=== PATIENT | female | born 1990 | race Caucasian/White ===

== ENCOUNTER 2017-04-15 19:44 | Emergency (ER) | payer MEDICAID ==
[2017-04-15] MEDS ORDERED: ONDANSETRON 4 MG/2 ML VIAL IVP ONE (20:15)
[2017-04-15] MEDS ORDERED: NS 1,000 ML IV ONE (20:15)
[2017-04-15] MEDS ORDERED: KETOROLAC 30 MG/1 ML SDV IVP ONE (20:15)
[2017-04-15 20:20] LABS: COLOR YELLOW; LEUKOCYTE ESTERASE,URINE 3+ (NEGATIVE); NITRITE,URINE NEGATIVE (NEGATIVE)
[2017-04-15 20:32] LABS: WBC,URINE >182 /hpf (0-3)
[2017-04-15 20:33] LABS: BACTERIA 3+ /hpf (NONE SEEN)
[2017-04-15 20:39] LABS: % IMMATURE GRANULYOCYTES 0.3 % (0.0-1.1); ABSOLUTE IMMATURE GRANULOCYTES 0.04 10^3/uL (0.00-0.10); ADD DIFF? NO; ADD MORPH? NO; ADD SCAN? NO; ATYPICAL LYMPHOCYTE FLAG 0 (0-99); FRAGMENT RBC FLAG 0 (0-99); HEMATOCRIT 43.7 % (38.0-47.0); HEMOGLOBIN 15.3 g/dL (12.6-16.3); LEFT SHIFT FLG 0 (0-99); LIPEMIA HEMOLYSIS FLAG 90 (0-99); MEAN CELL HEMOGLOBIN 29.2 pg (27.9-34.1); MEAN CELL VOLUME 83.4 fL (81.5-99.8); MEAN PLATELET VOLUME 12.3 fL (8.7-11.7); PLATELET CLUMPS FLAG 10 (0-99); PLATELET COUNT 224 10^3/uL (150-400); RED BLOOD CELL COUNT 5.24 10^6/uL (4.18-5.33); RED CELL DISTRIBUTION WIDTH 12.6 % (11.5-15.2)
[2017-04-15 20:52] LABS: ANION GAP 17 mEq/L (8-16); CALCIUM 9.2 mg/dL (8.5-10.4); CARBON DIOXIDE 21 mEq/l (22-31); CHLORIDE 102 mEq/L (97-110); CREATININE 0.5 mg/dL (0.6-1.0); GLOMERULAR FILTRATION RATE > 60; GLUCOSE 123 mg/dL (70-100); POTASSIUM 3.9 mEq/L (3.5-5.2); SODIUM 140 mEq/L (134-144)
[2017-04-15] MEDS ORDERED: CIPROFLOXACIN 500 MG TAB PO ONE (21:17)
[2017-04-15 21:22] LABS: ALBUMIN 4.2 g/dL (3.5-5.0); BILIRUBIN,TOTAL 0.8 mg/dL (0.1-1.4); BILIRUBIN-CONJUGATED 0.4 mg/dL (0.0-0.5); BILIRUBIN-UNCONJUGATED 0.4 mg/dL (0.0-1.1); TOTAL PROTEIN 8.1 g/dL (6.3-8.2)
--- NOTE | 2017-04-15 21:26 | EDPHY ---
H & P Stated Complaint: Dysuria, lethargy, TONEY, back pain, thinks has UTI Time Seen by Provider: 04/15/17 20:09 HPI/ROS: this patient reports onset of dysuria 1 week ago and over the past 2 days she has developed associated left flank pain, headache, nausea and vomiting. Last emesis is 1 hour prior to arrival. She has associated anorexia at the day due to the ongoing nausea. She notes no clear exacerbating factors for her symptoms. Her recent history includes [facility] discharge found have a yeast infection per patient. No urinalysis was done at that time. ROS: Constitutional: No high fevers or chills. She does report low-grade subjective fevers. HEENT: She reports generalized headache of moderate intensity today. This is similar to previous headaches. Pulmonary: No cough shortness of breath. Cardiovascular: No lightheadedness. No heart palpitations. GI: No hematemesis. No diarrhea. She reports normal bowel movements. : Mild vaginal discharge consistent with her yeast infection per patient. Dysuria as noted per HPI. Integumentary: No skin rash. 10 point ROS is otherwise negative. Source: Patient Exam Limitations: No limitations - Personal History LMP (Females 10-55): Irregular Current Tetanus/Diphtheria Vaccine: Unsure Current Tetanus Diphtheria and Acellular Pertussis (TDAP): Unsure - Medical/Surgical History Hx Asthma: No Hx Chronic Respiratory Disease: No Hx Diabetes: No Hx Cardiac Disease: No Hx Renal Disease: No Hx Cirrhosis: No Hx Alcoholism: No Hx HIV/AIDS: No Hx Splenectomy or Spleen Trauma: No Other PMH: C SECTION x2,tonsillectomy, cervical CA with surg, depression, anxiety, sleep issues, tonisllectomy, CHF with Renal failure post #2, Heroine addict HX - Clean for 8 years - Family History Significant Family History: No pertinent family hx - Social History Smoking Status: Never smoked Alcohol Use: Occasionally Drug Use: None (Former heroin use now clean per patient) - Physical Exam Exam: General Appearance: Alert, no distress. Eyes: Pupils equal and round no pallor or injection. ENT, Mouth: Mucous membranes moist. Respiratory: There are no retractions, lungs are clear to auscultation. Cardiovascular: Regular rate and rhythm.No murmur gallop rub is appreciated. Gastrointestinal: She has suprapubic tenderness -moderate. No guarding or rebound. No upper belly tenderness. No organomegaly is appreciated. Back: She has left CVA tenderness -[id number] Neurological: GCS 15. No focal sensory or motor deficits Skin: Warm and dry, no rashes. Musculoskeletal: Neck is supple nontender. Extremities are symmetrical, full range of motion. Psychiatric: mood and affect are normal DIFFERENTIAL DIAGNOSIS: After history and physical exam differential diagnosis was considered for pyelonephritis, ectopic , viral gastroenteritis, dehydration Constitutional: Initial Vital Signs Temperature (C) 36.8 C 04/15/17 19:55 Heart Rate 104 H 04/15/17 19:55 Respiratory Rate 16 04/15/17 19:55 Blood Pressure 111/83 H 04/15/17 19:55 O2 Sat (%) 95 04/15/17 19:55 O2 Delivery Mode Room Air Allergies/Adverse Reactions: cefdinir Allergy (Severe, Verified 04/15/17 19:58) Anaphylaxis Penicillins Allergy (Severe, Verified 04/15/17 19:58) Anaphylaxis Sulfa (Sulfonamide Antibiotics) Allergy (Severe, Verified 04/15/17 19:58) Anaphylaxis vancomycin Allergy (Severe, Verified 04/15/17 19:58) Anaphylaxis Home Medications: Medication Instructions Recorded Hydrocodone/APAP 5/325 [[place] 1 - 2 tab PO Q4PRN PRN #15 tab 08/28/16 5/325 (*)] IRON 08/28/16 Iud 08/28/16 Celexa 04/15/17 Ciprofloxacin [Cipro] 500 mg PO BID #14 tab 04/15/17 Fluconazole [Diflucan] 200 mg PO ONCE #2 tablet 04/15/17 Kratom For Drug Addiction. 04/15/17 LORazepam 04/15/17 Ondansetron Odt [Zofran Odt] 4 - 8 mg PO Q4PRN PRN #4 tab 04/15/17 Trazodone HCl 04/15/17 Medical Decision Making ED Course/Re-evaluation: IV normal saline bolus Zofran with resolution of nausea Toradol with improvement and flank pain and headache. Review of her labs reveals leukocytosis, electrolytes unremarkable. She bilirubin in her urine so LFTs were checked which were normal with no evidence of hepatitis. test is negative. I counseled regarding her pyelonephritis with plan for oral Cipro given her antibiotic allergies to cephalosporins the causes anaphylaxis, penicillins Vanco and sulfa. She understands the potential risk of tendon inflammation rupture with Cipro and accepts this risk. I also explained the rare possibility of cardiac dysrhythmia with combination Celexa, Cipro, Zofran Diflucan. Given our limitations with her many antibiotic allergies think this is still the best choice. Patient understands this risk and accepts it. At 10:08 p.m. patient has normal vital signs, feels improved after treatment and would like to proceed home. Discussion: Pyelonephritis without evidence of severe sepsis or other complicating factors. While she initially had 2 findings for SIRS/sepsis with elevated white count and tachycardia, her tachycardia resolved with treatment. Thereafter she no longer met septic criteria. - Data Points Laboratory Results: Laboratory Results 04/15/17 20:33 04/15/17 20:33 04/15/17 04/15/17 04/15/17 20:33 20:33 20:33 WBC RBC Hgb Hct MCV MCH MCHC RDW Plt Count MPV Neut % (Auto) Lymph % (Auto) [place] % (Auto) Eos % (Auto) Baso % (Auto) Nucleat RBC Rel Count Absolute Neuts (auto) Absolute Lymphs (auto) Absolute Monos (auto) Absolute Eos (auto) Absolute Basos (auto) Absolute Nucleated RBC Immature Gran % Immature Gran # Sodium 140 mEq/L mEq/L (134-144) Potassium 3.9 mEq/L mEq/L (3.5-5.2) Chloride 102 mEq/L mEq/L (97-110) Carbon Dioxide 21 mEq/l L mEq/l (22-31) Anion Gap 17 mEq/L H mEq/L (8-16) BUN 8 mg/dL mg/dL (7-23) Creatinine 0.5 mg/dL L mg/dL (0.6-1.0) Estimated GFR > 60 Glucose 123 mg/dL H mg/dL (70-100) Calcium 9.2 mg/dL mg/dL (8.5-10.4) Total Bilirubin 0.8 mg/dL mg/dL (0.1-1.4) Conjugated Bilirubin 0.4 mg/dL mg/dL (0.0-0.5) Unconjugated Bilirubin 0.4 mg/dL mg/dL (0.0-1.1) AST 28 IU/L IU/L (14-46) ALT 32 IU/L IU/L (9-52) Alkaline Phosphatase 81 IU/L IU/L (38-126) Total Protein 8.1 g/dL g/dL (6.3-8.2) Albumin 4.2 g/dL g/dL (3.5-5.0) Beta HCG, Qual NEGATIVE Urine Color Urine Appearance Urine pH Ur Specific [place] Urine Protein Urine Ketones Urine Blood Urine Nitrate Urine Bilirubin Urine Urobilinogen Ur Leukocyte Esterase Urine RBC Urine WBC Ur Epithelial Cells Urine Bacteria Urine Glucose 04/15/17 04/15/17 20:33 19:54 WBC 12.60 10^3/uL H 10^3/uL (3.80-9.50) RBC 5.24 10^6/uL 10^6/uL (4.18-5.33) Hgb 15.3 g/dL g/dL (12.6-16.3) Hct 43.7 % % (38.0-47.0) MCV 83.4 fL fL (81.5-99.8) MCH 29.2 pg pg (27.9-34.1) MCHC 35.0 g/dL g/dL (32.4-36.7) RDW 12.6 % % (11.5-15.2) Plt Count 224 10^3/uL 10^3/uL (150-400) MPV 12.3 fL H fL (8.7-11.7) Neut % (Auto) 75.5 % H % (39.3-74.2) Lymph % (Auto) 18.7 % % (15.0-45.0) [place] % (Auto) 4.4 % L % (4.5-13.0) Eos % (Auto) 0.8 % % (0.6-7.6) Baso % (Auto) 0.3 % % (0.3-1.7) Nucleat RBC Rel Count 0.0 % % (0.0-0.2) Absolute Neuts (auto) 9.51 10^3/uL H 10^3/uL (1.70-6.50) Absolute Lymphs (auto) 2.36 10^3/uL 10^3/uL (1.00-3.00) Absolute Monos (auto) 0.55 10^3/uL 10^3/uL (0.30-0.80) Absolute Eos (auto) 0.10 10^3/uL 10^3/uL (0.03-0.40) Absolute Basos (auto) 0.04 10^3/uL 10^3/uL (0.02-0.10) Absolute Nucleated RBC 0.00 10^3/uL 10^3/uL (0-0.01) Immature Gran % 0.3 % % (0.0-1.1) Immature Gran # 0.04 10^3/uL 10^3/uL (0.00-0.10) Sodium Potassium Chloride Carbon Dioxide Anion Gap BUN Creatinine Estimated GFR Glucose Calcium Total Bilirubin Conjugated Bilirubin Unconjugated Bilirubin AST ALT Alkaline Phosphatase Total Protein Albumin Beta HCG, Qual Urine Color YELLOW Urine Appearance CLOUDY Urine pH 6.0 (5.0-7.5) Ur Specific [place] 1.010 (1.002-1.030) Urine Protein 1+ H (NEGATIVE) Urine Ketones TRACE H (NEGATIVE) Urine Blood 1+ H (NEGATIVE) Urine Nitrate NEGATIVE (NEGATIVE) Urine Bilirubin POSITIVE H (NEGATIVE) Urine Urobilinogen 0.2 EU EU (0.2-1.0) Ur Leukocyte Esterase 3+ H (NEGATIVE) Urine RBC 5-10 /hpf H /hpf (0-3) Urine WBC >182 /hpf H /hpf (0-3) Ur Epithelial Cells NONE SEEN /lpf /lpf (NONE-1+) Urine Bacteria 3+ /hpf H /hpf (NONE SEEN) Urine Glucose NEGATIVE (NEGATIVE) Medications Given: Discontinued Medications Ciprofloxacin (Cipro) 500 mg PO EDNOW ONE PRN Reason: Protocol Stop: 04/15/17 21:18 Last Admin: 04/15/17 21:30 Dose: 500 mg Sodium Chloride (Ns) 1,000 mls @ 0 mls/hr IV ONCE ONE; Wide Open PRN Reason: Protocol Stop: 04/15/17 20:16 Last Admin: 04/15/17 20:51 Dose: 1,000 mls Ketorolac Tromethamine (Toradol) 15 mg IVP EDNOW ONE Stop: 04/15/17 20:16 Last Admin: 04/15/17 20:30 Dose: 15 mg Ondansetron HCl (Zofran) 4 mg IVP EDNOW ONE Stop: 04/15/17 20:16 Last Admin: 04/15/17 20:20 Dose: 4 mg Departure - Departure Disposition: Home, Routine, Self-Care Clinical Impression: Pyelonephritis, Dehydration, Vaginal yeast infection Vomiting Qualifiers: Vomiting type: unspecified Vomiting Intractability: non-intractable Nausea presence: with nausea Qualified Code(s): R11.2 - Nausea with vomiting, unspecified Condition: Good Instructions: Urinary Tract Infection in Women (ED), Acute Nausea and Vomiting (ED) Additional Instructions: Diagnosis: 1. Pyelonephritis 2. Vomiting 3. Dehydration 4, vaginal yeast Plan: Drink plenty fluids Cipro antibiotic Diflucan for yeast infection Ibuprofen Tylenol for pain control as needed Return for any significant worsening despite the treatment plan Follow up primary care physician listed below for recheck for any ongoing symptoms. Referrals: NONE *PRIMARY CARE P,. [Primary Care Provider] - As per Instructions Phoenix Conrad MD [Medical Doctor] - As per Instructions Prescriptions: Ciprofloxacin [Cipro] 500 mg PO BID #14 tab Fluconazole [Diflucan] 200 mg PO ONCE #2 tablet Ondansetron Odt [Zofran Odt] 4 - 8 mg PO Q4PRN PRN #4 tab PRN Reason: Vomiting
[2017-04-15 21:33] VITALS: TEMP 98.4
[2017-04-15 22:12] VITALS: BP 118/75; PULSE 101; RESP 22; O2SAT 96
== END 2017-04-15 22:12 | disposition home or self-care (01) ==
LOC: CED 19:44
DX: N12 Tubulo-interstitial nephritis, not specified as acute or chronic (principal); E86.0 Dehydration; B37.3 Candidiasis of vulva and vagina; I50.9 Heart failure, unspecified; Z85.41 Personal history of malignant neoplasm of cervix uteri
CPT/HCPCS: 80048-PO; 80076-PO; 81003-PO; 81015-PO; 84703-PO; 85025-PO; 96374; J1885; J2405